=== PATIENT | female | born 1945 | race Two or more races ===

== ENCOUNTER 2019-07-15 16:29 | Emergency (ER) | payer MEDICARE, OTHER ==
[2019-07-15] MEDS ORDERED: Sodium Chloride 0.9% 10 ML Syringe FLUSH PRN (17:37)
[2019-07-15] MEDS ORDERED: Lactated Ringers 1,000 ML IV ONE ×2 (17:40→19:38)
--- NOTE | 2019-07-15 18:58 | EDM.PDOC ---
ED HPI GENERAL MEDICAL PROBLEM - General Chief Complaint: General Stated Complaint: HIGH POTASSIUM Time Seen by Provider: 07/15/19 16:49 Source of Information: Reports: Patient, Family, RN Notes Reviewed (Daughter) - History of Present Illness INITIAL COMMENTS - FREE TEXT/NARRATIVE: 74-year-old patient sent over from [facility] by Dr. Martinez with concern about elevated potassium. She does have history of hypertension, mild renal insufficiency. Her potassium has been going up over the past week or 2. It was 5.8 "a few days ago and then 6.2 when checked at the clinic today. She has been feeling weak, tired, low energy this past week or more. Has not been eating or drinking well the past few days. She does have history of insulin-dependent diabetes, has been on insulin for about 25 years. She also does have history of peripheral vascular disease. She does deny chest pain or shortness of breath at this time. Right Arm Pain Score (Numeric/FACES): 8 - Related Data Allergies Allergy/AdvReac Type Severity Reaction Status Date / Time propoxyphene [From Darvon] Allergy Rash Verified 07/15/19 17:05 Past Medical History Cardiovascular History: Reports: High Cholesterol, Hypertension, Other (See Below) Other Cardiovascular History: hypercalcemia; vitamin b12 defiency Genitourinary History: Reports: Chronic Renal Insuffiency Neurological History: Reports: TIA Endocrine/Metabolic History: Reports: Diabetes, Type II Hematologic History: Reports: Anemia - Past Surgical History GI Surgical History: Reports: Appendectomy, Cholecystectomy, Colonoscopy, Other (See Below) Other GI Surgeries/Procedures: endoscopy Female Surgical History: Reports: Other (See Below) Other Female Surgeries/Procedures: benign lumps to bilateral breast Social & Family History - Tobacco Use Smoking Status *Q: Former Smoker Used Tobacco, but Quit: Yes Month/Year Tobacco Last Used: 20 y rs - Caffeine Use Caffeine Use: Reports: Coffee - Recreational Drug Use Recreational Drug Use: No ED ROS GENERAL - Review of Systems Review Of Systems: See Below Constitutional: Reports: Weakness (Generalized), Decreased Appetite. Denies: Fever, Chills, Diaphoresis HEENT: Denies: Throat Pain Respiratory: Denies: Shortness of Breath, Cough Cardiovascular: Denies: Chest Pain Endocrine: Reports: Fatigue GI/Abdominal: Reports: Decreased Appetite. Denies: Abdominal Pain, Diarrhea, Hematochezia, Melena, Vomiting Musculoskeletal: Reports: Leg Pain (Generalized achiness), Other Skin: Reports: Erythema (Bilateral distal feet) Neurological: Reports: Weakness. Denies: Trouble Speaking (Generalized) ED EXAM, GENERAL - Physical Exam Exam: See Below General Appearance: Alert, No Apparent Distress Eye Exam: Bilateral Eye: PERRL Throat/Mouth: Other Head: Atraumatic (Oral mucosa is dry). No: Facial Swelling Neck: Supple Respiratory/Chest: No Respiratory Distress, Lungs Clear, Normal Breath Sounds Cardiovascular: Regular Rate, Rhythm GI/Abdominal: Soft, Non-Tender. No: Guarding Extremities: Pedal Edema (Very mild bilateral), Redness (Distal feet). No: Leg Pain Neurological: Alert, Oriented, No Motor/Sensory Deficits Skin Exam: Warm, Dry, No Rash EKG INTERPRETATION EKG Date: 07/15/19 Rhythm: NSR Ash: Normal P-Wave: Present QRS: Normal ST-T: Normal QT: Normal Course - Vital Signs Last Recorded V/S: Last Vital Signs Temp 98.2 F 07/15/19 17:02 Pulse 89 07/15/19 17:02 Resp 15 07/15/19 17:02 BP 114/53 L 07/15/19 17:02 Pulse Ox 94 L 07/15/19 17:02 - Orders/Labs/Meds Labs: Laboratory Tests 07/15/19 07/15/19 07/15/19 Range/Units 17:25 17:25 17:25 WBC 6.23 (3.98-10.04) K/mm3 RBC 4.21 (3.98-5.22) M/mm3 Hgb 12.1 (11.2-15.7) gm/dl Hct 38.5 (34.1-44.9) % MCV 91.4 (79.4-94.8) fl MCH 28.7 (25.6-32.2) pg MCHC 31.4 L (32.2-35.5) g/dl RDW Std Deviation 47.4 H (36.4-46.3) fL Plt Count 224 (182-369) K/mm3 MPV 11.7 (9.4-12.3) fl Neut % (Auto) 57.1 (34.0-71.1) % Lymph % (Auto) 28.7 (19.3-51.7) % [place] % (Auto) 7.2 (4.7-12.5) % Eos % (Auto) 6.3 H (0.7-5.8) Baso % (Auto) 0.5 (0.1-1.2) % Neut # (Auto) 3.56 (1.56-6.13) K/mm3 Lymph # (Auto) 1.79 (1.18-3.74) K/mm3 [place] # (Auto) 0.45 H (0.24-0.36) K/mm3 Eos # (Auto) 0.39 H (0.04-0.36) K/mm3 Baso # (Auto) 0.03 (0.01-0.08) K/mm3 Sodium 138 (136-145) mEq/L Potassium 5.2 H (3.5-5.1) mEq/L Chloride 106 (98-107) mEq/L Carbon Dioxide 21 (21-32) mEq/L Anion Gap 16.2 H (5-15) BUN 36 H (7-18) mg/dL Creatinine 1.2 H (0.55-1.02) mg/dL Est Cr Clr Drug Dosing 29.99 mL/min Estimated GFR (MDRD) 44 (>60) mL/min BUN/Creatinine Ratio 30.0 H (14-18) Glucose 138 H (83-115) mg/dL Calcium 9.7 (8.5-10.1) mg/dL Total Bilirubin 0.2 (0.2-1.0) mg/dL AST 12 L (15-37) U/L ALT 14 (14-59) U/L Alkaline Phosphatase 69 (46-116) U/L NT-Pro-B Natriuret Pep 132 H (0-125) pg/mL Total Protein 7.2 (6.4-8.2) g/dl Albumin 3.8 (3.4-5.0) g/dl Globulin 3.4 gm/dL Albumin/Globulin Ratio 1.1 (1-2) Meds: Medications Discontinued Medications Generic Name Dose Route Start Last Admin Trade Name Freq PRN Reason Stop Dose Admin Lactated Ringer's 1,000 mls @ 999 mls/hr 07/15/19 17:40 07/15/19 18:42 Ringers, Lactated IV 07/15/19 18:40 999 mls/hr .BOLUS ONE Administration Lactated Ringer's 1,000 mls @ 999 mls/hr 07/15/19 19:38 07/15/19 19:45 Ringers, Lactated IV 07/15/19 20:38 999 mls/hr .BOLUS ONE Administration Lactated Ringer's Confirm 07/15/19 19:37 07/15/19 19:44 Ringers, Lactated Administered 07/15/19 19:38 Not Given Dose 1,000 mls @ as directed .ROUTE .STK-MED ONE Sodium Chloride 10 ml 07/15/19 17:37 07/15/19 18:42 Saline Flush FLUSH 10 ml ASDIRECTED PRN Administration Keep Vein Open - Re-Assessments/Exams Free Text/Narrative Re-Assessment/Exam: 07/15/19 19:21 EKG shows normal sinus rhythm, rate 78, narrow complex and T waves are of very normal size, normal size, not elevated or peaked in any way. I did go ahead and repeat labs. White blood count 6200, hemoglobin 12.1 sodium 138, potassium 5.2, CO2 21, anion gap 16.2 BUN 36 creatinine 1.2 BNP 132 chest x-ray normal. Glucose 138. We have given about 600 mils of lactated Ringer's at this time. After we have finished the first liter of lactated Ringer's will plan to give another 500 ml of lactated Ringer's and then plan to discharge home. She does have renal insufficiency but this is acute on chronic. Her potassium of 5.2 is not a danger at this time, as noted her EKG and rhythm is narrow complex sinus, regular with no T-wave or other abnormality at this time. We'll plan to have her go to furosemide 20 mg every other day for now and than she needs close follow-up early next week with Dr. Martinez, her regular local provider. She would probably benefit from Nephrology consultation in the near future. Departure - Departure Time of Disposition: 20:39 Disposition: Home, Self-Care 01 Condition: Fair Clinical Impression: Renal insufficiency, Dehydration, Hyperkalemia - Discharge Information Instructions: Acute Kidney Injury, Adult, Hyperkalemia, [id number], Dehydration, Adult, [id number] Referrals: Sandra Martinez MD [Primary Care Provider] - Forms: ED Department Discharge Additional Instructions: Drink plenty of water to maintain hydration, decrease lasix or furosemide to 20 mg every other day. See Dr. Martinez next Thursday or Thursday for recheck. It will be appropriate to have your chemistries rechecked Thursday. Return to ED as needed if symptoms worsening in any way.
[2019-07-15] MEDS ORDERED: Lactated Ringers 1,000 ML ONE (19:37)
--- NOTE | 2019-07-16 10:35 | CR ---
Chest: Portable view of the chest was obtained. Comparison: No prior chest x-rays available. Degenerative changes seen within both shoulders. Heart size is within normal limits for portable technique. Tortuous thoracic aorta is seen. Minimal atelectasis is noted above the right hemidiaphragm. More focal density is seen behind the left heart. Impression: 1. Focal density behind the left heart. This may represent partial eventration of the diaphragm, focal area of pneumonia or even left lung mass. Upright PA and lateral chest x-ray recommended to further evaluate. 2. Mild right basilar atelectasis. Diagnostic code #3 This report was dictated in [place] Standard Time
== END 2019-07-15 21:27 | disposition home or self-care (01) ==
LOC: JD.ED 16:29
DX: I12.9 Hypertensive chronic kidney disease with stage 1 through stage 4 chronic kidney disease, or unspecified chronic kidney disease (principal); N18.9 Chronic kidney disease, unspecified; E87.5 Hyperkalemia; E86.0 Dehydration; E11.9 Type 2 diabetes mellitus without complications; I10 Essential (primary) hypertension; Z88.8 Allergy status to other drugs, medicaments and biological substances; Z98.890 Other specified postprocedural states; Z90.49 Acquired absence of other specified parts of digestive tract; Z87.891 Personal history of nicotine dependence
CPT/HCPCS: 36415; 71045; 80053; 83880; 85025; 93005; 96360; 99285; J7120; 93010; 99283